=== PATIENT | female | born 2000 | race Caucasian/White ===

== ENCOUNTER 2023-10-05 14:22 | Inpatient (IN) | payer OTHER ==
[~2023-10-05] VITALS: Ht 154.9 cm; Wt 71.7 kg
[2023-10-05 14:34] VITALS: BP_SYST 124; PULSE 79; RESP 16; TEMP 97.7; O2SAT 99
[2023-10-05] MEDS: KETOROLAC TROMETHAMINE 30 MG VIAL IM ONE (15:00)
[2023-10-05 15:18] LABS: BASOPHILS # (AUTO) 0.1 K/uL (0.0-0.2); BASOPHILS % (AUTO) 0.6 % (0.0-2.0); EOSINOPHILS # (AUTO) 0.2 K/uL (0.0-0.4); EOSINOPHILS % (AUTO) 2.3 % (0.0-4.0); HEMATOCRIT 32.4 % (36-48); HEMOGLOBIN 11.1 g/dL (12.0-16.0); LYMPHOCYTES # (AUTO) 2.3 K/uL (1.0-5.5); LYMPHOCYTES % (AUTO) 26.9 % (20.5-51.5); MEAN CORPUSCULAR HEMOGLOBIN 28 pg (27-31); MEAN CORPUSCULAR HGB CONC 34 % (32-36); MEAN CORPUSCULAR VOLUME 83 fL (79.0-98.0); MONOCYTES # (AUTO) 0.8 K/uL (0.0-1.0); MONOCYTES % (AUTO) 9.7 % (1.7-9.3); NEUTROPHILS # (AUTO) 5.1 K/uL (1.8-7.7); NEUTROPHILS % (AUTO) 60.5 % (40.0-70.0); PLATELET COUNT (AUTO) 270 K/uL (130-430); RED BLOOD CELL COUNT(AUTO) 3.91 MIL/uL (4.2-6.2); RED CELL DISTRIBUTION WIDTH 13.9 % (9.0-15.0); WHITE BLOOD COUNT (AUTO) 8.4 K/uL (4.8-10.8)
[2023-10-05 15:42] LABS: INR 0.9 (0.8-1.2); PROTHROMBIN TIME 9.6 SECS (9.5-12.5)
[2023-10-05] MEDS: HYDROcodone/ACETAMIN 5-325 MG TAB (NORCO/ VICODIN) PO ONE (17:03)
[2023-10-05] MEDS ORDERED: ONDANSETRON HCL 4 MG/2 ML VIAL IVP PRN ×2 (17:30→18:45)
[2023-10-05] MEDS ORDERED: SERT-436 PO (18:00)
[2023-10-05] MEDS ORDERED: TRAZ-250 PO (18:00)
[2023-10-05] MEDS: D5/0.45 NS 1,000 ML IV ONE (18:44)
[2023-10-05 22:43] VITALS: BP_SYST 120; PULSE 68; RESP 20; TEMP 98.1
[2023-10-06 00:05] VITALS: BP_SYST 126; PULSE 72; RESP 18; TEMP 97.9; O2SAT 100
[2023-10-06] MEDS: SERTRALINE HCL 50 MG TABLET PO ONE (00:23)
[2023-10-06] MEDS: PIPERACILLIN/TAZO 3.375 GM in D5W 50 ML IV SCH (00:24)
[2023-10-06] MEDS: traZODone HCL 50 MG TABLET (DESYREL) PO ONE (00:24)
[2023-10-06] MEDS: PIPERACILLIN/TAZOBACTAM 3.375 GM/VIAL (ZOSYN) IV ONE (00:24)
[2023-10-06 08:00] VITALS: BP_SYST 119; RESP 13; TEMP 96.9; O2SAT 100
[2023-10-06] MEDS ORDERED: NALOXONE HCL 0.4 MG/ML AMP (NARCAN) IVP PRN (11:00)
[2023-10-06 11:12] LABS: TOTAL IRON BIND. CAPACITY 360 ug/dL (250-450)
[2023-10-06 13:02] VITALS: BP_SYST 113; PULSE 76; RESP 15; TEMP 97.3; O2SAT 99
[2023-10-06 16:17] VITALS: BP_SYST 113; PULSE 76; RESP 15; TEMP 97.3; O2SAT 99
[2023-10-06 20:00] VITALS: BP_SYST 121; PULSE 73; RESP 16; TEMP 98.2; O2SAT 98
[2023-10-06] MEDS: traZODone HCL 50 MG TABLET (DESYREL) PO SCH (22:54)
[2023-10-06] MEDS: SERTRALINE HCL 50 MG TABLET PO SCH (22:54)
[2023-10-07] VITALS: BP_SYST 119; PULSE 68; RESP 16; TEMP 97.8; O2SAT 98
[2023-10-07 08:23] LABS: ALBUMIN 3.1 g/dL (3.4-4.8); CALCIUM 8.4 mg/dL (8.4-11.0); CREATININE 0.88 mg/dL (0.55-1.30); POTASSIUM 4.3 mmol/L (3.5-5.1); TOTAL BILIRUBIN 0.4 mg/dL (0.0-1.0); TOTAL PROTEIN, SERUM 6.7 g/dL (6.4-8.3)
[2023-10-07 10:33] VITALS: BP_SYST 127; PULSE 84; RESP 20; TEMP 98.3; O2SAT 100
[2023-10-07 12:22] VITALS: BP_SYST 113; PULSE 69; RESP 16; TEMP 98.2; O2SAT 99
[2023-10-07 16:58] VITALS: BP_SYST 111; PULSE 74; RESP 17; TEMP 98.4; O2SAT 100
[2023-10-07] MEDS: NEO/POLYMYX B SULF/DEXAMETH 5 ML OPHT. DROPS.SUSP OP SCH (17:12)
[2023-10-07 20:00] VITALS: BP_SYST 118; PULSE 75; RESP 16; TEMP 97.8; O2SAT 99
[2023-10-08] VITALS: BP_SYST 114; PULSE 72; RESP 16; TEMP 98.1; O2SAT 100
[2023-10-08 07:39] VITALS: BP_SYST 125; PULSE 88; RESP 16; TEMP 97.8; O2SAT 98
[2023-10-08 08:16] LABS: BASOPHILS # (AUTO) 0.1 K/uL (0.0-0.2); BASOPHILS % (AUTO) 0.6 % (0.0-2.0); EOSINOPHILS # (AUTO) 0.1 K/uL (0.0-0.4); EOSINOPHILS % (AUTO) 1.1 % (0.0-4.0); HEMATOCRIT 29.4 % (36-48); HEMOGLOBIN 9.8 g/dL (12.0-16.0); LYMPHOCYTES # (AUTO) 1.3 K/uL (1.0-5.5); LYMPHOCYTES % (AUTO) 15.8 % (20.5-51.5); MEAN CORPUSCULAR HEMOGLOBIN 28 pg (27-31); MEAN CORPUSCULAR HGB CONC 33 % (32-36); MEAN CORPUSCULAR VOLUME 84 fL (79.0-98.0); MONOCYTES # (AUTO) 0.6 K/uL (0.0-1.0); MONOCYTES % (AUTO) 7.3 % (1.7-9.3); NEUTROPHILS # (AUTO) 6.2 K/uL (1.8-7.7); NEUTROPHILS % (AUTO) 75.2 % (40.0-70.0); PLATELET COUNT (AUTO) 239 K/uL (130-430); RED BLOOD CELL COUNT(AUTO) 3.49 MIL/uL (4.2-6.2); RED CELL DISTRIBUTION WIDTH 13.6 % (9.0-15.0); WHITE BLOOD COUNT (AUTO) 8.2 K/uL (4.8-10.8)
[2023-10-08] MEDS: HYDROmorphone 1 MG/ML INJ. CARTRIDGE IVP PRN (08:20)
[2023-10-08 08:23] LABS: CALCIUM 8.6 mg/dL (8.4-11.0); CREATININE 0.87 mg/dL (0.55-1.30)
[2023-10-08 08:45] VITALS: O2SAT 100
[2023-10-08 11:57] VITALS: BP_SYST 122; PULSE 80; RESP 16; TEMP 98.8; O2SAT 100
[2023-10-08] MEDS ORDERED: MELO-89 PO (12:42)
[2023-10-08 13:07] VITALS: BP_SYST 122; PULSE 80; RESP 17; TEMP 98.8; O2SAT 100
== END 2023-10-08 14:30 | disposition home health service (06) | DRG 760 ==
LOC: SED 14:22 → SMU 17:29
PROVIDERS: ADMIT Specialist; ATTEND Specialist
DX: D25.9 Leiomyoma of uterus, unspecified (principal); D62 Acute posthemorrhagic anemia; E44.1 Mild protein-calorie malnutrition; N85.8 Other specified noninflammatory disorders of uterus; Z79.899 Other long term (current) drug therapy; Z68.29 Body mass index [BMI] 29.0-29.9, adult
CPT/HCPCS: 36415; 72195; 76830; 80048; 80053; 83540; 83550; 84702; 85025; 85610; 86304; 86900; 86901; 96372; 99285; J1170; J1885; J2543; J7060

== ENCOUNTER → 2023-11-01 19:30 | Outpatient (CLI) | payer OTHER ==
[~2023-11-01] VITALS: Ht 154.9 cm; Wt 70.3 kg
[~2023-11-01 19:30] MED LIST: CEFAZOLIN SOD 2 GM in D5W 50 ML IV ONE; MELO-89 PO; SERT-436 PO; TRAZ-250 PO
== END | disposition home or self-care (01) ==
LOC: SLB 11-01 08:00 → EDSTATUS 11-08 12:00
PROVIDERS: ATTEND Specialist
DX: N92.0 Excessive and frequent menstruation with regular cycle (principal); D50.0 Iron deficiency anemia secondary to blood loss (chronic); R93.89 Abnormal findings on diagnostic imaging of other specified body structures; E28.2 Polycystic ovarian syndrome
CPT/HCPCS: 87081; J0690; J7060

== ENCOUNTER 2023-12-31 06:30 | Day surgery (SDC) | payer OTHER ==
[~2023-12-31] VITALS: Ht 154.9 cm; Wt 68.0 kg
[~2023-12-31 06:30] MED LIST changes: -CEFAZOLIN SOD 2 GM in D5W 50 ML IV ONE
[2023-12-31] MEDS ORDERED: CEFAZOLIN SOD 2 GM in D5W 50 ML IV ONE (07:00)
[2023-12-31 07:38] LABS: HCG,QUAL RESULT NEGATIVE (NEGATIVE)
[2023-12-31 08:57] VITALS: O2SAT 100
[2023-12-31] MEDS ORDERED: KETOROLAC TROMETHAMINE 30 MG VIAL IVP PRN (09:30)
[2023-12-31] MEDS ORDERED: HYDROmorphone 1 MG/ML INJ. CARTRIDGE IVP PRN (09:30)
[2023-12-31] MEDS ORDERED: HYDROmorphone 2 MG/ML VIAL IVP PRN (09:30)
[2023-12-31] MEDS ORDERED: LR 1,000 ML IV SCH (09:30)
[2023-12-31] MEDS ORDERED: ACETAMINOPHEN I.V. 1000 MG 100 ML IV ONE (09:54)
[2023-12-31] MEDS ORDERED: ONDANSETRON HCL 4 MG/2 ML VIAL IVP PRN (10:15)
[2023-12-31] MEDS ORDERED: OXYCODONE/ACETAMINOPHEN 5-325 TABLET PO PRN ×2 (10:15)
[2023-12-31] MEDS ORDERED: HYDROcodone/ACETAMIN 5-325 MG TAB (NORCO/ VICODIN) PO PRN (10:15)
[2023-12-31] MEDS ORDERED: MIDAZOLAM HCL 2 MG/2 ML VIAL (VERSED) ONE (10:35)
[2023-12-31] MEDS ORDERED: SEVOFLURANE 15 MIN GAS INH ONE (10:35)
[2023-12-31] MEDS ORDERED: PHENYLEPHRINE HCL 10 MG/ML VIAL (NEOSYNEPHRINE) ONE (10:35)
[2023-12-31] MEDS ORDERED: FUROSEMIDE 20 MG/2 ML VIAL ONE (10:35)
[2023-12-31] MEDS ORDERED: GLYCOPYRROLATE 0.2 MG/ML VIAL ONE (10:35)
[2023-12-31] MEDS ORDERED: ONDANSETRON HCL 4 MG/2 ML VIAL ONE ×2 (10:35→11:54)
[2023-12-31] MEDS ORDERED: SUCCINYLCHOLINE CHLORIDE 20 MG/ML(QUELICIN) ONE (10:35)
[2023-12-31] MEDS ORDERED: METOCLOPRAMIDE HCL 10 MG/2 ML VIAL ONE (10:35)
[2023-12-31] MEDS ORDERED: PROPOFOL 200MG/ 20ML VIAL (DIPRIVAN) IV ONE (10:35)
[2023-12-31] MEDS ORDERED: ROCURONIUM BROMIDE 10 MG/ML (ZEMURON) ONE (10:35)
[2023-12-31] MEDS ORDERED: LR 1,000 ML IV.SOLN IV ONE (10:35)
[2023-12-31] MEDS ORDERED: fentaNYL CITRATE/PF 100 MCG/2 ML AMP ONE (10:35)
[2023-12-31 10:39] LABS: BASOPHILS % (AUTO) 0.4 % (0.0-2.0); EOSINOPHILS # (AUTO) 0.1 K/uL (0.0-0.4); EOSINOPHILS % (AUTO) 1.2 % (0.0-4.0); LYMPHOCYTES % (AUTO) 29.3 % (20.5-51.5); MEAN CORPUSCULAR HEMOGLOBIN 26 pg (27-31); MEAN CORPUSCULAR HGB CONC 31 % (32-36); MEAN CORPUSCULAR VOLUME 85 fL (79.0-98.0); MONOCYTES # (AUTO) 0.3 K/uL (0.0-1.0); MONOCYTES % (AUTO) 4.6 % (1.7-9.3); NEUTROPHILS # (AUTO) 4.4 K/uL (1.8-7.7); NEUTROPHILS % (AUTO) 64.5 % (40.0-70.0); PLATELET COUNT (AUTO) 245 K/uL (130-430); RED BLOOD CELL COUNT(AUTO) 2.05 MIL/uL (4.2-6.2); WHITE BLOOD COUNT (AUTO) 6.9 K/uL (4.8-10.8)
[2023-12-31 10:52] LABS: HEMATOCRIT 17.4 % (36-48); HEMOGLOBIN 5.4 g/dL (12.0-16.0); POTASSIUM 4.1 mmol/L (3.5-5.1)
[2023-12-31] MEDS: ONDANSETRON HCL 4 MG/2 ML VIAL IVP PRN (11:54)
[2023-12-31 13:45] LABS: BASOPHILS % (AUTO) 0.1 % (0.0-2.0); LYMPHOCYTES # (AUTO) 0.9 K/uL (1.0-5.5); LYMPHOCYTES % (AUTO) 6.7 % (20.5-51.5); MEAN CORPUSCULAR HEMOGLOBIN 26 pg (27-31); MEAN CORPUSCULAR HGB CONC 31 % (32-36); MEAN CORPUSCULAR VOLUME 84 fL (79.0-98.0); MONOCYTES # (AUTO) 0.7 K/uL (0.0-1.0); MONOCYTES % (AUTO) 4.8 % (1.7-9.3); NEUTROPHILS # (AUTO) 12.5 K/uL (1.8-7.7); NEUTROPHILS % (AUTO) 88.4 % (40.0-70.0); PLATELET COUNT (AUTO) 275 K/uL (130-430); RED BLOOD CELL COUNT(AUTO) 2.11 MIL/uL (4.2-6.2); RED CELL DISTRIBUTION WIDTH 20.6 % (9.0-15.0); WHITE BLOOD COUNT (AUTO) 14.2 K/uL (4.8-10.8)
[2023-12-31 13:51] LABS: HEMATOCRIT 17.8 % (36-48); HEMOGLOBIN 5.5 g/dL (12.0-16.0)
[2023-12-31 18:25] LABS: BASOPHILS # (AUTO) 0.1 K/uL (0.0-0.2); BASOPHILS % (AUTO) 0.4 % (0.0-2.0); HEMATOCRIT 22.6 % (36-48); HEMOGLOBIN 7.3 g/dL (12.0-16.0); LYMPHOCYTES # (AUTO) 1.1 K/uL (1.0-5.5); LYMPHOCYTES % (AUTO) 6.8 % (20.5-51.5); MEAN CORPUSCULAR HEMOGLOBIN 28 pg (27-31); MEAN CORPUSCULAR HGB CONC 32 % (32-36); MONOCYTES # (AUTO) 0.6 K/uL (0.0-1.0); MONOCYTES % (AUTO) 3.8 % (1.7-9.3); NEUTROPHILS # (AUTO) 14.5 K/uL (1.8-7.7); PLATELET COUNT (AUTO) 271 K/uL (130-430); RED BLOOD CELL COUNT(AUTO) 2.65 MIL/uL (4.2-6.2); RED CELL DISTRIBUTION WIDTH 19.3 % (9.0-15.0); WHITE BLOOD COUNT (AUTO) 16.3 K/uL (4.8-10.8)
[2023-12-31 18:27] LABS: MEAN CORPUSCULAR VOLUME 86 fL (79.0-98.0)
[2023-12-31] MEDS ORDERED: SIMETHICONE 80 MG TAB.CHEW ONE (19:20)
[2023-12-31] MEDS: SIMETHICONE 80 MG TAB.CHEW PO SCH (19:30)
[2023-12-31 20:57] VITALS: BP_SYST 126; PULSE 94; RESP 20
== END 2023-12-31 20:05 | disposition home or self-care (01) ==
LOC: SDS 06:30 → SMU 06:30 → SDS 20:05
PROVIDERS: ATTEND Specialist
DX: N92.0 Excessive and frequent menstruation with regular cycle (principal); N85.8 Other specified noninflammatory disorders of uterus; D25.0 Submucous leiomyoma of uterus; E28.2 Polycystic ovarian syndrome; D50.0 Iron deficiency anemia secondary to blood loss (chronic); F32.A Depression, unspecified; Z88.1 Allergy status to other antibiotic agents; Z79.899 Other long term (current) drug therapy
CPT/HCPCS: 87081; 49320; 58561; 80051; 84703; 85025; 86886; 86900; 86901; 86920; 36415; 88305; P9021; J0690; J3490; J2765; J2250; J2405; J2704; J0330; J3010; J7060; J7120; C1727; C1819; J0131; E0190; J1940